=== PATIENT | female | born 1980 ===

== ENCOUNTER 2025-01-17 12:21 | Emergency (ER) | payer OTHER, SELFPAY ==
[2025-01-17 12:23] VITALS: BP 171/110
[2025-01-17 12:25] VITALS: BP 171/110
[2025-01-17 12:44] LABS: Hematocrit 42.7 % (37.0-47.0); Hemoglobin 14.4 g/dL (12.0-16.0); Mean Corp Hgb Conc. 33.7 g/dL (33.0-37.0); Mean Corpuscular Volume 91.0 fL (81.0-99.0); Nucleated Red Blood Cells % 0 %; Platelet Count 307 10^3/uL (130-400); Red Cell Dist. Width 13.0 % (11.5-14.5)
--- NOTE | 2025-01-17 12:56 | ED.GENMED ---
History of Present Illness
General
Chief Complaint: Withdrawal Symptoms
Time Seen by Provider: 01/17/25 12:41
History of Present Illness
History of Present Illness:
44-year-old female with history of substance abuse presents to the emergency department from [facility] due to withdrawal symptoms. She reports headache, nausea vomiting diarrhea, and generalized tremors beginning this
morning. Her last use was greater than 48 hours ago. Endorses using 3 bags of fentanyl daily. Denies any chest pain or shortness of breath currently denies any methamphetamine, xylazine, or alcohol use
Review of Systems
Review of Systems
Allergies reviewed?: Yes
All Other Systems: ROS reviewed and negative except as documented in HPI and ROS
Phy Exam
Physical Exam
Physical Exam:
GEN: Well appearing, NAD, WDWN
HEENT: Oral mucosa moist, no scleral icterus
Cardiac: Regular rate and rhythm, no murmur
Lung: No respiratory distress, no tachypnea, lungs clear to auscultation bilaterally
MSK: No gross deformity or injuries
Skin: Good color, no pallor or jaundice, no rashes
Neuro: AO x3, moves all extremities freely, no nystagmus
Psych: Calm, cooperative
Course
Orders/Labs/Results
Orders:
Orders
01/17/25 12:37
Basic Metabolic Panel Urgent
CBC/With Diff [Complete Blood Count/With Diff] Urgent
Magnesium Urgent
Comment: ADD ON
01/17/25 12:53
0.9% Sodium Chloride 1000 ml [Nss] 1,000 ml IV BOLUS
Buprenorphine [Subutex] 4 mg SL NOW STA
Clonidine [Catapres] 0.2 mg PO NOW STA
Ondansetron Injectable [Zofran] 4 mg IV NOW STA
01/17/25 13:00
Ondansetron Orally Disint [Zofran Odt (Orally Disintegrating)] 4 mg PO NOW STA
01/17/25 13:03
Electrocardiogram (*1) Urgent
Reason for Study: QTc Monitoring
EKG- Treatment ONCE
01/17/25 15:10
Add On- LAB Urgent
Tests Added?: magnesium
01/17/25 15:11
Electrocardiogram (*1) Urgent
Reason for Study: QTc Monitoring
EKG- Treatment ONCE
Abnormal Lab Results
01/17/25
12:37
WBC 14.8 H 10^3/uL
(4.8-10.8)
MPV 10.5 H fL
(7.4-10.4)
Abs Immat Gran (auto) 0.1 H 10^3/uL
(0-0.05)
Absolute Neuts (auto) 13.5 H 10^3/uL
(1.4-6.5)
Absolute Lymphs (auto) 0.8 L 10^3/uL
(1.2-3.4)
Neutrophils % 91.2 H %
(42.2-75.2)
Lymphocytes % 5.6 L %
(20.5-51.1)
Chloride 97 L mmol/L
(98-107)
BUN 5 L mg/dl
(7-17)
Creatinine 0.5 L mg/dL
(0.6-1.0)
Glucose 191 H mg/dl
(70-99)
Magnesium 1.5 L mg/dl
(1.6-2.3)
01/17/25 12:37
01/17/25 12:37
Vital Signs
Initial and Last Documented VS:
Initial Vital Signs
BP
171/110
01/17/25 12:23
Last Documented Vital Signs
Temp Pulse Resp BP Pulse Ox
98.1 F 88 27 146/79 97
01/17/25 12:25 01/17/25 15:00 01/17/25 15:00 01/17/25 15:00 01/17/25 13:15
MDM/Problems Addressed
MDM/Problems Addressed:
Patient tolerated oral medications quite well and symptoms did improve. After being administered buprenorphine and ondansetron EKG was obtained showing prolonged QT with a QTc of 570. Patient was then observed and given oral hydration without
difficulty. Subsequent EKG showed improved QTc to 510. I recommended the correctional facility not administer antiemetics if at all possible however buprenorphine is likely safe in this case as QT prolongation is quite minimal from buprenorphine
*Pulse Oximetry
SaO2: 66
Oxygen Mode of Delivery: Room air
Patient hypoxic: no
*Critical Care Note
Total Time (30-74mins, 75-104mins- exclusive of procedures): Not Applicable
ED Attending Note
-
Portions of this chart may have been created with voice recognition software.� Occasional wrong word or��sound alike� substitutions may have occurred due to the inherent limitations of voice recognition software.
Discharge Plan
Departure
Patient Disposition: Home (Routine Discharge)
Date of Disposition: 01/17/25
Time of Disposition: 15:22
Patient with high blood pressure during this ER visit?: No
Discharge Problem:
Opiate withdrawal
Instructions: Opioid withdrawal - ED discharge instructions
Prescriptions:
No Action
acetaminophen-codeine 300-30 mg Tablet
2 tab PO TID
Rx Instructions:
crush med
Referrals:
[facility] [Family Provider, General]
Activity Restrictions/Additional Instructions:
Please begin buprenorphine, she was given 4 mg in the emergency department with improved symptoms. She has a prolonged QTc interval thus please avoid Zofran if at all possible. She was also given 0.2 mg of clonidine
Interventions
Interventions:
*Risk Screen - Suicide Last Done: 01/17/25 12:25
*General Assessment Last Done: 01/17/25 12:25
*Neglect/Abuse Screening Last Done: 01/17/25 12:25
*ED- Fall Risk Assessment Last Done: 01/17/25 12:25
*ED COVID-19 Vaccine History Last Done: 01/17/25 12:25
*Nursing Disposition Last Done: 01/17/25 15:41
ED- Neurological Assessment Last Done: 01/17/25 12:33
ED-Psychological Assessment Last Done: 01/17/25 12:33
Discharge Date and Time
Discharge Date/Time: 01/17/25 15:42
Print Language: [place]
[2025-01-17 13:00] VITALS: BP 162/84
[2025-01-17 13:00] LABS: Blood Urea Nitrogen 5 mg/dl (7-17); Calcium 9.2 mg/dl (8.4-10.2); Carbon Dioxide 28 mmol/L (22-30); Chloride 97 mmol/L (98-107); Estimated Creatinine Clearance 109 ml/min; Glucose 191 mg/dl (70-99); Potassium 3.8 mmol/L (3.5-5.1); Sodium 136 mmol/L (135-145); eGFR > 60.00
[2025-01-17] MEDS: ZOFRAN ODT (ORALLY DISINTEGRATING) 4 MG PO (13:11)
[2025-01-17] MEDS: SUBUTEX 4 MG SL (13:18)
[2025-01-17] MEDS: CATAPRES 0.2 MG PO (13:19)
[2025-01-17 14:00] VITALS: BP 159/85
[2025-01-17 15:00] VITALS: BP 146/79
[2025-01-17 15:48] LABS: Magnesium 1.5 mg/dl (1.6-2.3)
== END 2025-01-17 15:42 | disposition home or self-care (01) ==
LOC: EMR 12:21
PROVIDERS: EMERGENCY PHYSICIAN Student in an Organized Health Care Education/Training Program
DX: F11.23 Opioid dependence with withdrawal (principal); R51.9 Headache, unspecified; R11.2 Nausea with vomiting, unspecified; R94.31 Abnormal electrocardiogram [ECG] [EKG]
CPT/HCPCS: 99284; 80048; 83735; 85025; 93005